=== PATIENT | female | born 1960 | race Caucasian/White ===

== ENCOUNTER 2022-05-29 10:17 | Outpatient (CLI) | payer OTHER | END 2022-05-29 10:18 | disposition home or self-care (01) | LOC: CSHMRI 10:17 | PROVIDERS: ATTEND Surgery | DX: M50.30 Other cervical disc degeneration, unspecified cervical region (principal); M47.812 Spondylosis without myelopathy or radiculopathy, cervical region | CPT/HCPCS: 72141 ==